=== PATIENT | female | born 1990 | race Two or more races ===

== ENCOUNTER 2019-02-10 10:42 | Emergency (ER) | payer OTHER ==
[2019-02-10 10:51] VITALS: BP 114/70; PULSE 73; TEMP 98.2; BMI 28.8
[2019-02-10] MEDS ORDERED: SULFAMETHOXAZOLE/TRIMETHOPRIM 800MG/160MG D.S. TABLET PO ONE (12:23)
[2019-02-10] MEDS ORDERED: SULFAMETHOXAZOLE/TRIMETHOPRIM 800MG/160MG D.S. TABLET ONE (12:36)
--- NOTE | 2019-02-10 12:47 | PDOC ---
History of Present Illness - General Chief Complaint: Injury Stated Complaint: RT KNEE INJURY Time Seen by Provider: 02/10/19 11:51 - History of Present Illness Initial Comments: 02/10/19 12:44 CHIEF COMPLAINT: R knee pain/abrasion HISTORY OF PRESENT ILLNESS: 28 yo F with no PMH presents to [facility] with R knee pain after fall. Patient reports tripping and falling while walking along the street two days ago but did not come to be seen until today because "she didn't think it was that bad." Patient states that the pain has worsened to her right knee and that it seems more red and swollen now around the abrasion. No recent travel or sick contacts. PAST MEDICAL HISTORY: Denies past medical history FAMILY HISTORY: Denies SOCIAL HISTORY: Denies tobacco, alcohol, illicit drug use. SURGICAL HISTORY: Denies ALLERGIES: No known drug allergies REVIEW OF SYSTEMS General/Constitutional: Denies fever or chills. Denies weakness, weight change. HEENT: Denies change in vision. Denies ear pain or discharge. Denies sore throat. Cardiovascular: Denies chest pain or shortness of breath. Respiratory: Denies cough, wheezing, or hemoptysis. Gastrointestinal: Denies nausea, vomiting, diarrhea or constipation. Denies rectal bleeding. Genitourinary: Denies dysuria, frequency, or change in urination. Musculoskeletal: Denies joint or muscle swelling or pain. Denies neck or back pain. Skin: Abrasion and redness to R knee. Neurologic: Denies headache, vertigo, loss of consciousness, or loss of sensation. PHYSICAL EXAM General Appearance: Well-appearing, appropriately dressed. No apparent distress , no intoxication. HEENT: EOMI, PERRLA, normal ENT inspection, normal voice, TMs normal, pharynx normal. No conjunctival pallor. No photophobia, scleral icterus. Neck: Supple. Trachea midline. No tenderness, rigidity, carotid bruit, stridor , lymphadenopathy, or thyromegaly. Respiratory/Chest: Lungs CTAB. No shortness of breath, chest tenderness, respiratory distress, accessory muscle use. No crackles, rales, rhonchi, stridor , wheezing, dullness Cardiovascular: RRR. S1, S2. No JVD, murmur, bradycardia, tachycardia. Vascular Pulses: Dorsalis-Pedis (R): 2+, Dorsalis-Pedis (L): 2+ Gastrointestinal/Abdominal: Normal bowel sounds. Abdomen soft, non-distended. No tenderness or rebound tenderness. No organomegaly, pulsatile mass, guarding , hernia, hepatomegaly, splenomegaly. Lymphatic: No adenopathy, tenderness. Musculoskeletal/Extremities: Pain elicited with flexion of R knee. Normal inspection. FROM of all extremities, normal capillary refill. Pelvis Stable. No CVA tenderness. No tenderness to extremities, pedal edema, swelling, erythema or deformity. Integumentary: Abrasion to R knee approximately 4x4 in size with surrounding tenderness, erythema, and mild swelling. Otherwise ppropriate color, dry, warm. Neurologic: flooring sales manager II-XII intact. Fully oriented, alert. Appropriate mood/affect. Motor strength 5/5. No appreciable EOM palsy, facial droop or sensory deficit. Past History - Past Medical History Allergies/Adverse Reactions: Allergies Allergy/AdvReac Type Severity Reaction Status Date / Time No Known Drug Allergies Allergy Verified 02/10/19 10:51 Home Medications: Ambulatory Orders Sulfamethoxazole/Trimethoprim [Bactrim Ds -] 1 tab PO BID #14 tablet 02/10/19 Asthma: No Cancer: No Cardiac Disorders: No COPD: No Diabetes: No HTN: No Seizures: No Thyroid Disease: No - Surgical History Abdominal Surgery: (tubal ligation) - Immunization History Immunization Up to Date: Yes - Suicide/Smoking/Psychosocial Hx Smoking History: Never smoked Have you smoked in the past 12 months: No Information on smoking cessation initiated: No Hx Alcohol Use: No Drug/Substance Use Hx: No Substance Use Type: None Hx Substance Use Treatment: No *Physical Exam - Vital Signs Last Vital Signs Temp Pulse Resp BP Pulse Ox 98.2 F 73 19 114/70 100 02/10/19 10:50 02/10/19 10:50 02/10/19 10:50 02/10/19 10:50 02/10/19 10:50 ED Treatment Course - RADIOLOGY Radiology Studies Ordered: Category Date Time Status KNEE 3 POS-RIGHT [RAD] Stat Radiology 02/10/19 12:22 Ordered - Medications Given in the ED: ED Medications Discontinued Medications Generic Name Dose Route Start Last Admin Trade Name Freq PRN Reason Stop Dose Admin Trimethoprim/Sulfamethoxazole 1 each 02/10/19 12:23 02/10/19 12:39 Bactrim Ds - PO 02/10/19 12:24 1 each ONCE ONE Administration Medical Decision Making - Medical Decision Making 02/10/19 12:46 28 yo F with no PMH presents to fast track with R knee pain after fall. -bactrim -wound culture -R knee xray eval gas/osteo 02/10/19 13:25 x-ray negative. wound washed with saline, covered with xeroform and dry gauze. bactrim rx sent to pharm. 02/10/19 13:29 Advised patient to take medication as prescribed. Advised patient of signs and symptoms for return to ED. Patient verbalized understanding and agrees to plan. *DC/Admit/Observation/Transfer Diagnosis at time of Disposition: Abrasion of right knee Qualifiers: Encounter type: initial encounter Qualified Code(s): S80.211A - Abrasion, right knee, initial encounter - Discharge Dispostion Disposition: HOME Condition at time of disposition: Stable Decision to Admit order: No - Prescriptions Prescriptions: Sulfamethoxazole/Trimethoprim [Bactrim Ds -] 1 tab PO BID #14 tablet - Referrals Referrals: Cody Shields MD [Primary Care Provider] - - Patient Instructions Printed Discharge Instructions: DI for Abrasion - Post Discharge Activity
== END 2019-02-10 13:38 | disposition home or self-care (01) ==
LOC: JERFT 10:42
DX: S80.211A Abrasion, right knee, initial encounter (principal); W18.39XA Other fall on same level, initial encounter; Y93.89 Activity, other specified; Y92.414 Local residential or business street as the place of occurrence of the external cause; Y99.8 Other external cause status
CPT/HCPCS: 73562-TC-RT-FY; 87070; 87205; 99281-25

== ENCOUNTER 2020-08-30 11:24 | Emergency (ER) | payer OTHER ==
[2020-08-30 11:30] VITALS: BP 132/59; PULSE 98; TEMP 98.3; BMI 26.4
[2020-08-30] MEDS ORDERED: ACETAMINOPHEN 500 MG TABLET (FP) PO ONE (12:00)
[2020-08-30] MEDS ORDERED: ACETAMINOPHEN 500 MG TABLET (FP) ONE (12:05)
[2020-08-30 13:36] LABS: THROAT:GRP A STREP Negative (Negative)
== END 2020-08-30 12:08 | disposition home or self-care (01) ==
LOC: JER 11:24
DX: U07.1 COVID-19 (principal)
CPT/HCPCS: 87880; 99283-25; C9803; U0003

== ENCOUNTER 2022-12-30 01:58 | Emergency (ER) | payer OTHER ==
[2022-12-30 02:16] VITALS: BMI 27.3
[2022-12-30 03:00] LABS: BASO % 0.6 % (0-2.0); EOS % 2.2 % (0-4.5); HEMATOCRIT 38.8 % (32.4-45.2); LYMPH % 44.6 % (8-40); MCH 28.8 pg (25.7-33.7); MCHC 33.5 g/dl (32.0-36.0); MEAN PLT VOLUME 7.5 fl (7.5-11.1); NEUT % 45.6 % (42.8-82.8); PLATELET COUNT 324 10^3/uL (134-434); RBC 4.52 M/mm3 (3.60-5.2); RDW 14.1 % (11.6-15.6); WHITE BLOOD COUNT 9.3 K/mm3 (4.0-10.0)
[2022-12-30 03:19] LABS: INR 0.98 (0.83-1.09); PROTHROMBIN TIME (PATIENT) 11.4 SEC (9.7-13.0)
[2022-12-30] MEDS ORDERED: SODIUM CHLORIDE 0.9% 500 ML INFUS.BAG IV ONE (03:32)
[2022-12-30 03:40] LABS: POTASSIUM 4.1 mmol/L (3.5-5.1)
[2022-12-30 03:42] LABS: ALBUMIN 3.9 g/dl (3.4-5.0); BLOOD UREA NITROGEN 16.7 mg/dL (7-18); CALCIUM 9.3 mg/dL (8.5-10.1)
[2022-12-30 03:45] LABS: CREATININE 0.8 mg/dL (0.55-1.3)
[2022-12-30 03:47] LABS: BILIRUBIN,TOTAL 0.4 mg/dL (0.2-1); TOT PROT 7.5 g/dl (6.4-8.2)
[2022-12-30 05:44] LABS: BASO % 0.6 % (0-2.0); HEMATOCRIT 34.3 % (32.4-45.2); HEMOGLOBIN 11.4 GM/dL (10.7-15.3); LYMPH % 35.1 % (8-40); MCH 28.9 pg (25.7-33.7); MCHC 33.1 g/dl (32.0-36.0); MEAN CELL VOLUME 87.3 fl (80-96); MEAN PLT VOLUME 8.6 fl (7.5-11.1); MONO % 6.9 % (3.8-10.2); NEUT % 55.4 % (42.8-82.8); PLATELET COUNT 289 10^3/uL (134-434); RBC 3.93 M/mm3 (3.60-5.2); RDW 13.6 % (11.6-15.6); WHITE BLOOD COUNT 8.8 K/mm3 (4.0-10.0)
[2022-12-30 07:33] LABS: BASO % 0.5 % (0-2.0); EOS % 1.8 % (0-4.5); HEMOGLOBIN 11.3 GM/dL (10.7-15.3); LYMPH % 40.1 % (8-40); MCH 29.4 pg (25.7-33.7); MCHC 33.3 g/dl (32.0-36.0); MEAN CELL VOLUME 88.4 fl (80-96); MEAN PLT VOLUME 8.4 fl (7.5-11.1); MONO % 5.9 % (3.8-10.2); NEUT % 51.7 % (42.8-82.8); PLATELET COUNT 276 10^3/uL (134-434); RBC 3.85 M/mm3 (3.60-5.2); RDW 13.6 % (11.6-15.6); WHITE BLOOD COUNT 7.2 K/mm3 (4.0-10.0)
[2022-12-30 07:38] VITALS: BP 106/59; PULSE 57; RESP 14; TEMP 98.5
== END 2022-12-30 08:38 | disposition home or self-care (01) ==
LOC: JER 01:58
DX: N93.9 Abnormal uterine and vaginal bleeding, unspecified (principal); R42 Dizziness and giddiness
CPT/HCPCS: 36415; 80053; 84703; 85025; 85610; 86850; 86900; 86901; 99284-25